=== PATIENT | female | born 1985 | race Caucasian/White ===

== ENCOUNTER 2017-07-16 09:05 | Inpatient (IN) | payer OTHER ==
[~2017-07-16] VITALS: Ht 152.4 cm; Wt 126.5 kg
[~2017-07-16 09:05] MED LIST: BACTRIM,SEPT1 TABLET PO; ESCITALOPRAM OX10 MG PO; HYDROCHLOROTHIA25 MG PO; TOPAMAX100 MG PO
[2017-07-16 10:03] LABS: MCH 28.9 PG (29.0-34.0); MEAN PLAT.VOLUME 9.8 uM^3 (9.5-12.4); PLATELET COUNT 304 K/uL (156-360); RBC DIS.WIDTH-CV 13.7 % (11.8-14.6); RBC DIS.WIDTH-SD 42.5 % (39-53); RED BLOOD COUNT 5.06 M/uL (3.80-5.20)
[2017-07-16 10:23] LABS: CHLORIDE 109 mEq/L (99-109); POTASSIUM 3.9 mEq/L (3.7-5.4); SODIUM 141 mEq/L (136-147)
[2017-07-16 10:24] LABS: ADD MIUA? YES; BILIRUBIN NEGATIVE; BLOOD NEGATIVE; COLOR YELLOW ((YELLOW)); GLUCOSE (STRIP) NEGATIVE; KETONES NEGATIVE; LEUKOCYTES NEGATIVE; NITRITE NEGATIVE; PROTEIN (STRIP) NEGATIVE; SPECIFIC GRAVITY 1.026 (1.000-1.030); UROBILINOGEN 0.2 MG/DL (0.2-1.0)
[2017-07-16 10:25] LABS: GLUCOSE 110 mg/dL (70-99)
[2017-07-16 10:27] LABS: ANION GAP 10 MEQ/L (2-14)
[2017-07-16 10:29] LABS: GFR ESTIMATE (CALCULATED) > 59 mL/min/
[2017-07-16 10:30] LABS: UREA NITROGEN (BUN) 16 mg/dL (9-23)
[2017-07-16 10:31] LABS: BACTERIA RARE /HPF; EPITHELIAL CELLS 2+ /HPF; HYALINE CASTS 0-5 /LPF; MUCUS TRACE /LPF; RED BLOOD CELLS 0-5 /HPF (0-5); WHITE BLOOD CELLS 0-5 /HPF (0-5)
[2017-07-16 10:33] LABS: AMPHETAMINE NEGATIVE (500 ng/mL); BARBITURATES NEGATIVE (200 ng/mL); BENZODIAZEPINES NEGATIVE (150 ng/mL); COCAINE NEGATIVE (150 ng/mL); INTERNAL CONTROLS VALID? YES; METHADONE NEGATIVE (200 ng/mL); METHAMPHETAMINE NEGATIVE (500 ng/mL); OPIATES (MORPHINE) NEGATIVE (100 ng/mL); OXYCODONE NEGATIVE (100 ng/mL); PHENCYCLIDINE NEGATIVE (25 ng/mL); PROPOXYPHENE NEGATIVE (300 ng/mL); THC CANNABINOIDS NEGATIVE (50 ng/mL); TRICYCLIC ANTIDEPRESSANTS NEGATIVE (300 ng/mL)
[2017-07-16] MEDS ORDERED: PRILOSEC20 MG PO (12:39)
[2017-07-16] MEDS ORDERED: TRAMADOL HCL50 MG PO (12:40)
[2017-07-16 12:55] VITALS: BP 115/69
[2017-07-16 13:17] VITALS: BP 115/69
[2017-07-16 15:27] VITALS: BP 109/55
[2017-07-17 07:51] VITALS: BP 116/59
[2017-07-17 15:21] VITALS: BP 103/52
[2017-07-18 07:58] VITALS: BP 119/56
[2017-07-18 15:47] VITALS: BP 110/58
[2017-07-19 08:01] VITALS: BP 97/54
[2017-07-19] MEDS ORDERED: TRAZODONE HCL50 MG PO (09:41)
[2017-07-19] MEDS ORDERED: SERTRALINE HCL100 MG PO (09:41)
== END 2017-07-19 11:00 | disposition home or self-care (01) | DRG 885 ==
LOC: EME 09:05 → 1WEST 12:18 → EDOF 12:18 → ENRESERV 12:52 → 1WEST 12:52
PROVIDERS: Nurse Practitioner Family
DX: F33.1 Major depressive disorder, recurrent, moderate (principal); R45.851 Suicidal ideations; Z68.43 Body mass index [BMI] 50.0-59.9, adult; G47.00 Insomnia, unspecified; K21.9 Gastro-esophageal reflux disease without esophagitis; E78.5 Hyperlipidemia, unspecified; F41.9 Anxiety disorder, unspecified; E66.9 Obesity, unspecified; Z88.5 Allergy status to narcotic agent; Z88.6 Allergy status to analgesic agent; Z81.8 Family history of other mental and behavioral disorders; Z91.411 Personal history of adult psychological abuse
CPT/HCPCS: 80048; 81003; 85027; 90839; 97150 GO; 97530 GO; 99281; 99285; Q0177

== ENCOUNTER 2018-01-20 20:54 | Emergency (ER) | payer BC ==
[~2018-01-20] VITALS: Ht 152.4 cm; Wt 117.6 kg
[~2018-01-20 20:54] MED LIST changes: +PRILOSEC20 MG PO; +SERTRALINE HCL100 MG PO; +TRAMADOL HCL50 MG PO; +TRAZODONE HCL50 MG PO
[2018-01-20 21:48] LABS: BASOPHIL (%) 0.3 % (0-1); EOSINOPHIL (%) 0.5 % (0-5); HEMATOCRIT 40.5 % (36.0-46.0); HEMOGLOBIN 14.3 G/DL (11.9-15.5); IMMATURE GRANULOCYTE (%) 0.3 % (0.0-0.7); LYMPHOCYTE (%) 15.9 % (15-42); LYMPHOCYTE COUNT 1.4 K/uL (1.0-2.8); MCH 29.7 PG (29.0-34.0); MCHC 35.3 G/DL (30.0-36.0); MONOCYTE (%) 5.8 % (3-12); MONOCYTE COUNT 0.5 K/uL (0-0.8); NEUTROPHIL (%) 77.2 % (45-76); NEUTROPHIL COUNT 6.6 K/uL (1.8-6.4); PLATELET COUNT 298 K/uL (156-360); RBC DIS.WIDTH-CV 13.2 % (11.8-14.6); RBC DIS.WIDTH-SD 40.2 % (39-53); RED BLOOD COUNT 4.82 M/uL (3.80-5.20); WHITE BLOOD COUNT 8.6 K/uL (4.1-10.2)
[2018-01-20 21:56] LABS: ALBUMIN 3.8 g/dL (3.2-4.8); CHLORIDE 107 mEq/L (99-109); POTASSIUM 3.5 mEq/L (3.7-5.4); SODIUM 139 mEq/L (136-147)
[2018-01-20 21:58] LABS: D-DIMER ELISA < 150.00 ng/mLDDU (<230)
[2018-01-20 21:59] LABS: GLUCOSE 203 mg/dL (70-99)
[2018-01-20 22:01] LABS: TOTAL BILIRUBIN 0.4 mg/dL (0.0-1.0)
[2018-01-20 22:02] LABS: ALKALINE PHOSPHATASE 71 IU/L (3-129); CREATININE 0.9 mg/dL (0.6-1.3); GFR ESTIMATE (CALCULATED) > 59 mL/min/
[2018-01-20 22:03] LABS: UREA NITROGEN (BUN) 18 mg/dL (9-23)
[2018-01-20 22:04] LABS: AST (GOT) 18 IU/L (2-34)
[2018-01-20 22:05] LABS: ALT (GPT) 30 IU/L (3-49)
[2018-01-20 22:11] LABS: QUANTITATIVE HCG < 4.0 MIU/ML
[2018-01-20 22:15] LABS: TROP-I INTERPRETATION NEGATIVE; TROPONIN-I < 0.01 ng/mL (0.0-0.30)
[2018-01-21 00:32] LABS: TROP-I INTERPRETATION NEGATIVE; TROPONIN-I < 0.01 ng/mL (0.0-0.30)
[2018-01-21 00:56] VITALS: BP 125/75
== END 2018-01-21 00:56 | disposition home or self-care (01) ==
LOC: EME → EDBD 20:54 → EME 20:54
PROVIDERS: Emergency Medicine
DX: R55 Syncope and collapse (principal); S80.812A Abrasion, left lower leg, initial encounter; W10.9XXA Fall (on) (from) unspecified stairs and steps, initial encounter; Y92.007 Garden or yard of unspecified non-institutional (private) residence as the place of occurrence of the external cause; E78.5 Hyperlipidemia, unspecified; G43.909 Migraine, unspecified, not intractable, without status migrainosus; Z87.39 Personal history of other diseases of the musculoskeletal system and connective tissue; Z86.69 Personal history of other diseases of the nervous system and sense organs; Z98.890 Other specified postprocedural states; Z90.710 Acquired absence of both cervix and uterus; Z88.5 Allergy status to narcotic agent; Z88.6 Allergy status to analgesic agent; Z88.8 Allergy status to other drugs, medicaments and biological substances
CPT/HCPCS: 70450; 71046; 73590; 80053; 84484; 84702; 85025; 85379; 93005; 99281; 99285; J7040

== ENCOUNTER 2018-03-01 09:30 | Emergency (ER) | payer OTHER ==
[~2018-03-01] VITALS: Ht 152.4 cm; Wt 121.8 kg
[2018-03-01 11:43] LABS: HEMATOCRIT 43.3 % (36.0-46.0); HEMOGLOBIN 14.4 G/DL (11.9-15.5); MCH 29.3 PG (29.0-34.0); MCHC 33.3 G/DL (30.0-36.0); PLATELET COUNT 344 K/uL (156-360); RBC DIS.WIDTH-CV 13.8 % (11.8-14.6); RBC DIS.WIDTH-SD 44.5 % (39-53); RED BLOOD COUNT 4.92 M/uL (3.80-5.20); WHITE BLOOD COUNT 5.9 K/uL (4.1-10.2)
[2018-03-01 12:01] LABS: APPEARANCE CLOUDY ((CLEAR)); BILIRUBIN NEGATIVE; BLOOD NEGATIVE; COLOR YELLOW ((YELLOW)); GLUCOSE (STRIP) NEGATIVE; KETONES NEGATIVE; LEUKOCYTES NEGATIVE; NITRITE NEGATIVE; PROTEIN (STRIP) 30; SPECIFIC GRAVITY 1.027 (1.000-1.030); UROBILINOGEN 0.2 MG/DL (0.2-1.0)
[2018-03-01 12:04] LABS: ALBUMIN 4.4 g/dL (3.2-4.8); CHLORIDE 109 mEq/L (99-109); POTASSIUM 4.3 mEq/L (3.7-5.4); SODIUM 144 mEq/L (136-147)
[2018-03-01 12:06] LABS: GLUCOSE 110 mg/dL (70-99); TOTAL PROTEIN 7.5 g/dL (6.4-8.3)
[2018-03-01 12:08] LABS: TOTAL BILIRUBIN 0.7 mg/dL (0.0-1.0)
[2018-03-01 12:10] LABS: ALKALINE PHOSPHATASE 85 IU/L (3-129); CREATININE 0.9 mg/dL (0.6-1.3); GFR ESTIMATE (CALCULATED) > 59 mL/min/
[2018-03-01 12:11] LABS: UREA NITROGEN (BUN) 11 mg/dL (9-23)
[2018-03-01 12:12] LABS: AST (GOT) 19 IU/L (2-34)
[2018-03-01 12:13] LABS: ALT (GPT) 39 IU/L (3-49)
[2018-03-01 12:20] LABS: QUANTITATIVE HCG < 4.0 MIU/ML
[2018-03-01 12:37] LABS: EPITHELIAL CELLS 3+ /HPF; RED BLOOD CELLS NONE SEEN /HPF (0-5); WHITE BLOOD CELLS 0-5 /HPF (0-5)
[2018-03-01 12:38] LABS: BACTERIA 1+ /HPF; MUCUS 3+ /LPF; UCUL ADDED? NO
[2018-03-01 13:00] LABS: THYROTROPIN (TSH) 1.3 MIU/L (0.4-5.5)
[2018-03-01] MEDS ORDERED: ULTRAM50 MG PO (13:09)
[2018-03-01 13:22] VITALS: BP 131/66
[2018-03-01 13:51] LABS: LYME DISEASE SEROLOGY SCREEN NEGATIVE (NEGATIVE)
== END 2018-03-01 13:22 | disposition home or self-care (01) ==
LOC: EME 09:30
PROVIDERS: Physician Assistant
DX: M25.552 Pain in left hip (principal); M25.551 Pain in right hip; M25.511 Pain in right shoulder; M25.512 Pain in left shoulder; M25.562 Pain in left knee; M25.561 Pain in right knee; M79.642 Pain in left hand; M79.641 Pain in right hand; M25.572 Pain in left ankle and joints of left foot; M25.571 Pain in right ankle and joints of right foot; F32.9 Major depressive disorder, single episode, unspecified; F41.9 Anxiety disorder, unspecified; Z88.6 Allergy status to analgesic agent
CPT/HCPCS: 80053; 81003; 84443; 84702; 85027; 86618; 99281; 99283